=== PATIENT | male | born 1990 | race Caucasian/White ===

== ENCOUNTER 2019-05-07 20:22 | Outpatient (CLI) | payer MEDICAID | END 2019-05-07 20:23 | disposition critical access hospital (66) | LOC: EMS 20:22 | PROVIDERS: ATTEND Surgery | DX: Z03.89 Encounter for observation for other suspected diseases and conditions ruled out (principal); Z59.0 Homelessness | CPT/HCPCS: A0425; A0429 ==

== ENCOUNTER 2019-05-07 20:35 | Emergency (ER) | payer MEDICAID ==
--- NOTE | 2019-05-07 20:49 | ED Physician Documentation ---
PD HPI MHE - Stated complaint Stated Complaint: ALOC - Chief complaint Chief Complaint: General - History obtained from History obtained from: Patient, EMS - History of Present Illness Primary symptom: Psychosis Timing - onset: Unknown Contributing factors: Other (homeless unable to contact family) Similar symptoms before: Diagnosis (schizoaffective and bipolar) Recently seen: Not recently seen - Additional information Additional information: 28-year-old male is unable to give a clear picture of why he is in the emergency department he is homeless and he appears sad. He is complaining of a headache and he is hungry and tired. Review of Systems Constitutional: reports: Fatigue. denies: Fever Eyes: denies: Decreased vision Ears: denies: Ear pain Nose: reports: Congestion Cardiac: denies: Chest pain / pressure, Palpitations Respiratory: reports: Cough. denies: Dyspnea GI: denies: Vomiting PD PAST MEDICAL HISTORY - Past Medical History Past Medical History: Yes Cardiovascular: None Respiratory: Asthma Neuro: None Endocrine/Autoimmune: None GI: None : None HEENT: None Psych: Bipolar disorder, Schizophrenia Musculoskeletal: None, Chronic back pain Derm: None - Past Surgical History Past Surgical History: Yes General: Other Ortho: Other - Allergies Allergies/Adverse Reactions: Allergies Allergy/AdvReac Type Severity Reaction Status Date / Time orange AdvReac Unknown Verified 05/07/19 20:45 - Social History Does the pt smoke?: No Smoking Status: Never smoker Does the pt drink ETOH?: No Does the pt have substance abuse?: No - Immunizations Immunizations are current?: No - POLST Patient has POLST: No PD ED PE NORMAL - Vitals Vital signs reviewed: Yes (hypertensive ) - General General: Well developed/nourished, Other (super sad affect with very quiet voice. ) - HEENT HEENT: Atraumatic, PERRL, EOMI, Other (dry mucuos membranes Right TM is inflamed with indistinct landmarks and the left is less involved with only mild umbo rounding.) - Neck Neck: Supple, no meningeal sign, No bony TTP - Cardiac Cardiac: RRR, No murmur - Respiratory Respiratory: No respiratory distress, Clear bilaterally - Abdomen Abdomen: Soft, Non tender - Back Back: No CVA TTP, No spinal TTP - Derm Derm: Normal color, Warm and dry, No rash - Extremities Extremities: No deformity, Other (trace edema to the feet bilaterally ) - Neuro Neuro: No motor deficit, No sensory deficit, Other (speech is quiet and dysarthric) Eye Opening: Spontaneous Motor: Obeys Commands Verbal: Confused GCS Score: 14 - Psych Psych: Other (mood is sad affect is sad) Results - Vitals Vitals: Vital Signs - 24 hr 05/07/19 05/07/19 05/07/19 20:36 21:30 21:39 Temperature 37.3 C Heart Rate 93 Respiratory 17 16 17 Rate Blood Pressure 141/102 H O2 Saturation 98 05/07/19 05/07/19 05/07/19 21:57 22:12 22:49 Temperature 37.2 C Heart Rate 84 Respiratory 20 17 17 Rate Blood Pressure 150/97 H O2 Saturation 99 05/07/19 05/08/19 05/08/19 23:58 00:15 00:20 Temperature Heart Rate Respiratory 16 17 18 Rate Blood Pressure O2 Saturation 05/08/19 05/08/19 05/08/19 01:20 02:33 02:49 Temperature Heart Rate Respiratory 17 17 17 Rate Blood Pressure O2 Saturation 05/08/19 03:47 Temperature Heart Rate Respiratory 16 Rate Blood Pressure O2 Saturation Oxygen O2 Source Room air - Labs Labs: Laboratory Tests 05/07/19 05/07/19 05/07/19 20:54 20:54 20:54 WBC 7.0 RBC 4.11 L Hgb 12.9 L Hct 40.2 L MCV 97.8 H MCH 31.4 H MCHC 32.1 RDW 12.5 Plt Count 194 MPV 9.2 Neut # (Auto) 3.9 Lymph # (Auto) 2.2 [place] # (Auto) 0.6 Eos # (Auto) 0.1 Baso # (Auto) 0.0 Absolute Nucleated RBC 0.00 Nucleated RBC % 0.0 Sodium 142 Potassium 3.6 Chloride 106 Carbon Dioxide 28 Anion Gap 8.0 BUN 10 Creatinine 0.9 Estimated GFR (MDRD) 99 Glucose 82 Lactic Acid 1.6 Calcium 8.7 Total Bilirubin 0.6 AST 19 ALT 16 Alkaline Phosphatase 52 Total Protein 7.0 Albumin 4.0 Globulin 3.0 Albumin/Globulin Ratio 1.3 Lipase 33 Urine Color Urine Clarity Urine pH Ur Specific [place] Urine Protein Urine Glucose (UA) Urine Ketones Urine Occult Blood Urine Nitrite Urine Bilirubin Urine Urobilinogen Ur Leukocyte Esterase Ur Microscopic Review Urine Culture Comments Urine Opiates Screen Ur Oxycodone Screen Urine Methadone Screen Ur Propoxyphene Screen Ur Barbiturates Screen Ur Tricyclics Screen Ur Phencyclidine Scrn Ur Amphetamine Screen U Methamphetamines Scrn U Benzodiazepines Scrn Urine Cocaine Screen U Cannabinoids Screen Ethyl Alcohol < 5.0 05/07/19 21:45 WBC RBC Hgb Hct MCV MCH MCHC RDW Plt Count MPV Neut # (Auto) Lymph # (Auto) [place] # (Auto) Eos # (Auto) Baso # (Auto) Absolute Nucleated RBC Nucleated RBC % Sodium Potassium Chloride Carbon Dioxide Anion Gap BUN Creatinine Estimated GFR (MDRD) Glucose Lactic Acid Calcium Total Bilirubin AST ALT Alkaline Phosphatase Total Protein Albumin Globulin Albumin/Globulin Ratio Lipase Urine Color YELLOW Urine Clarity CLEAR Urine pH 7.0 Ur Specific [place] 1.020 Urine Protein NEGATIVE Urine Glucose (UA) NEGATIVE Urine Ketones NEGATIVE Urine Occult Blood NEGATIVE Urine Nitrite NEGATIVE Urine Bilirubin NEGATIVE Urine Urobilinogen 1 (NORMAL) Ur Leukocyte Esterase NEGATIVE Ur Microscopic Review NOT INDICATED Urine Culture Comments NOT INDICATED Urine Opiates Screen NEGATIVE Ur Oxycodone Screen NEGATIVE Urine Methadone Screen NEGATIVE Ur Propoxyphene Screen NEGATIVE Ur Barbiturates Screen NEGATIVE Ur Tricyclics Screen NEGATIVE Ur Phencyclidine Scrn NEGATIVE Ur Amphetamine Screen NEGATIVE U Methamphetamines Scrn NEGATIVE U Benzodiazepines Scrn NEGATIVE Urine Cocaine Screen NEGATIVE U Cannabinoids Screen POSITIVE H Ethyl Alcohol PD MEDICAL DECISION MAKING - ED course Complexity details: considered differential, d/w patient ED course: 1-year-old homeless male appearing sad hungry and tired has a history of schizophrenia and bipolar disorder and he presents to the emergency department with no specific complaint his physical exam is otherwise unremarkable he does ask for food. It is busy in the emergency department and we are unable to provide him with any other specific services in the middle of the night and he eventually elopes. Departure - Departure Disposition: ED [place] Condition: Stable Discharge Date/Time: 05/08/19 04:45
[2019-05-07 21:14] LABS: ALBUMIN/GLOBULIN RATIO 1.3 (1.0-2.2); ALKALINE PHOSPHATASE 52 IU/L (42-121); ALT ALANINE AMINOTRANSFERASE 16 IU/L (10-60); AST ASPARTATE AMINOTRANSFERASE 19 IU/L (10-42); BILIRUBIN,TOTAL 0.6 mg/dL (0.2-1.0); BUN - BLOOD UREA NITROGEN 10 mg/dL (6-20); CALCIUM 8.7 mg/dL (8.5-10.3); CARBON DIOXIDE - CO2 28 mmol/L (21-32); CHLORIDE 106 mmol/L (101-111); CREATININE 0.9 mg/dL (0.6-1.2); GFR - MDRD 99 (>89); GLUCOSE 82 mg/dL (70-100); LIPASE 33 U/L (22-51); SODIUM 142 mmol/L (135-145)
[2019-05-07 21:16] LABS: BASOPHILS % (AUTO) 0.6 %; EOSINOPHILS # (AUTO) 0.1 10^3/uL (0.0-0.7); HGB - HEMOGLOBIN 12.9 g/dL (14.0-18.0); LYMPHOCYTES # (AUTO) 2.2 10^3/uL (1.5-3.5); LYMPHOCYTES % (AUTO) 31.8 %; MEAN CORPUSCULAR HEMOGLOBIN 31.4 pg (27.0-31.0); MEAN CORPUSCULAR HGB CONC 32.1 g/dL (32.0-36.0); MEAN CORPUSCULAR VOLUME 97.8 fL (80.0-94.0); MEAN PLATELET VOLUME 9.2 fL (7.4-11.4); MONOCYTES # (AUTO) 0.6 10^3/uL (0.0-1.0); MONOCYTES % (AUTO) 9.2 %; NEUTROPHILS # (AUTO) 3.9 10^3/uL (1.5-6.6); NEUTROPHILS % (AUTO) 56.1 %; PLT - PLATELET COUNT 194 10^3/uL (130-450); RED BLOOD COUNT 4.11 10^6/uL (4.70-6.10); RED CELL DISTRIBUTION WIDTH 12.5 % (12.0-15.0)
[2019-05-07 21:52] LABS: MUDS CUTOFF CONCENTRATIONS CUTOFF CONC BELOW:
[2019-05-07 21:57] LABS: BILIRUBIN,URINE NEGATIVE (NEGATIVE); GLUCOSE, URINE (UA) NEGATIVE (NEGATIVE); KETONES,URINE (UA) NEGATIVE (NEGATIVE); LEUKOCYTE ESTERASE, URINE NEGATIVE (NEGATIVE); NITRITE,URINE NEGATIVE (NEGATIVE); OCCULT BLOOD,URINE NEGATIVE (NEGATIVE); PROTEIN,URINE NEGATIVE (NEGATIVE); UROBILINOGEN,URINE 1 (NORMAL) E.U./dL (NORMAL)
[2019-05-07 21:58] VITALS: BP 150/97
[2019-05-07 22:02] LABS: CLARITY,URINE CLEAR (CLEAR)
[2019-05-07 22:13] LABS: AMPHETAMINE SCREEN,URINE NEGATIVE (NEGATIVE); BENZODIAZEPINES SCREEN, URINE NEGATIVE (NEGATIVE); COCAINE SCREEN URINE NEGATIVE (NEGATIVE); METHADONE SCREEN, URINE NEGATIVE (NEGATIVE); METHAMPHETAMINES SCREEN, URINE NEGATIVE (NEGATIVE); OPIATE SCREEN, URINE NEGATIVE (NEGATIVE); OXYCODONE SCREEN, URINE NEGATIVE (NEGATIVE); PROPOXYPHENE SCREEN, URINE NEGATIVE (NEGATIVE); TRICYCLIC ANTIDEPRESSANT,URINE NEGATIVE (NEGATIVE)
== END 2019-05-08 04:45 | disposition left against medical advice (07) ==
LOC: ED 20:35
DX: F20.9 Schizophrenia, unspecified (principal); Z76.5 Malingerer [conscious simulation]; Z59.0 Homelessness
CPT/HCPCS: 36415; 80053; 80306; 80320; 81001; 81003; 83605; 83690; 85025; 87086; 99283; 99284

== ENCOUNTER 2019-05-12 21:20 | Outpatient (CLI) | payer MEDICAID | END 2019-05-12 23:59 | disposition critical access hospital (66) | LOC: EMS 21:20 | PROVIDERS: ATTEND Surgery | DX: R06.02 Shortness of breath (principal); R05 Cough; M79.605 Pain in left leg; M79.604 Pain in right leg; Z59.0 Homelessness | CPT/HCPCS: A0425; A0429 ==

== ENCOUNTER 2019-05-12 21:38 | Emergency (ER) | payer MEDICAID ==
[2019-05-12 21:44] VITALS: BP 141/89
--- NOTE | 2019-05-12 23:00 | XRAY Report ---
Reason: fall ankle pain Procedure Date: 05/12/2019 Accession Number: [id number] / [id number] Procedure: XR - Ankle 3 View RT CPT Code: Final Report FULL RESULT: EXAM: RIGHT ANKLE RADIOGRAPHY EXAM DATE: 05/12/2019 10:38 PM. CLINICAL HISTORY: Fall ankle pain. COMPARISON: None. TECHNIQUE: 3 views. FINDINGS: Bones: No acute fracture. No suspicious osseous lesion. Joints: No significant joint space narrowing. No dislocation. Other: None. IMPRESSION: No acute osseous abnormality. RADIA
--- NOTE | 2019-05-12 23:05 | ED Physician Documentation ---
PD HPI LOWER EXT INJURY - Stated complaint Stated Complaint: LEG PAIN FOR YEARS - Chief complaint Chief Complaint: Ext Problem - History obtained from History obtained from: Patient - History of Present Illness PD HPI LOW EXT INJURY LOCATION: Right, Ankle Type of injury: Fall, Twist Where injury occurred: Street Timing - onset: Today Timing - duration: Hours Timing - details: Abrupt onset, Still present Improved by: Rest Worsened by: Moving, Palpating Associated symptoms: No: Weakness, Numbness, Tingling, Swelling Similar symptoms before: Diagnosis (ankle fracture) Recently seen: Emergency Dept - Additional information Additional information: 28-year-old homeless male with a history of schizoaffective disorder and bipolar disorder was seen in the emergency department last week and eventually diagnosed with malingering. Today he has called the ambulance after having an alleged fall and complains of pain in his legs. He has had a prior fracture of his left distal tibia and has hardware in place from this fracture. He is complaining of pain to the ankles bilaterally and he is vague about how this happened and about his specific symptoms. He does indicate he has had pain in his ankles for "years" Review of Systems Constitutional: denies: Fever GI: denies: Vomiting Musculoskeletal: reports: Extremity pain, Pain with weight bearing Neurologic: denies: Generalized weakness, Focal weakness, Numbness PD PAST MEDICAL HISTORY - Past Medical History Past Medical History: Yes Cardiovascular: None Respiratory: Asthma Neuro: None Endocrine/Autoimmune: None GI: None : None HEENT: None Psych: Bipolar disorder, Schizophrenia Musculoskeletal: Chronic back pain Derm: None - Past Surgical History Past Surgical History: Yes General: Other Ortho: Other - Allergies Allergies/Adverse Reactions: Allergies Allergy/AdvReac Type Severity Reaction Status Date / Time orange AdvReac Unknown Verified 05/12/19 21:43 - Social History Does the pt smoke?: Yes Smoking Status: Current every day smoker Does the pt drink ETOH?: No Does the pt have substance abuse?: No - Immunizations Immunizations are current?: No - POLST Patient has POLST: No PD ED PE NORMAL - Vitals Vital signs reviewed: Yes (hypertensive mild ) - General General: No acute distress, Well developed/nourished, Other (sad affect is improved from prior visit. ) - HEENT HEENT: Atraumatic, PERRL, EOMI - Respiratory Respiratory: No respiratory distress - Extremities Extremities: Other (There is presents of dependant edema bilaterally and there is not specific swelling laterally or medially to the ankles. He complains of pain in the ankles when specifically asked. On exam this is to the medial and lateral malleolus and not to the proximal 5th or the dorusm of the foot. Distal n/v is intact. ) - Neuro Neuro: Alert and oriented X 3, forestry aide 2-12 intact, No motor deficit, No sensory deficit, Other (speech is quiet) Eye Opening: Spontaneous Motor: Obeys Commands Verbal: Oriented GCS Score: 15 - Psych Psych: Normal mood, Other (affect is blunted) Results - Vitals Vitals: Vital Signs - 24 hr 05/12/19 05/12/19 05/12/19 21:41 22:00 22:32 Temperature 36.7 C Heart Rate 88 Respiratory 17 16 16 Rate Blood Pressure 141/89 H O2 Saturation 98 05/12/19 05/12/19 05/12/19 22:48 23:39 23:47 Temperature Heart Rate Respiratory 16 16 16 Rate Blood Pressure O2 Saturation 05/12/19 05/12/19 23:49 23:54 Temperature Heart Rate 80 Respiratory 17 17 Rate Blood Pressure O2 Saturation 96 Oxygen O2 Source Room air - Rads (name of study) ankle R Radiology: Prelim report reviewed (Impression: No acute osseous abnormality.), EMP read indepedently, See rad report Procedures - Splint (location) ankle bilaterally Splint applied by: Tech Type of splint: Ankle airsplint Other: Patient tolerated well, No complications, Neurovascular intact, Good alignment. No: Crutches provided PD MEDICAL DECISION MAKING - ED course Complexity details: reviewed old records, reviewed results, re-evaluated patient, considered differential, d/w patient ED course: 28-year-old homeless male with a complaint of ankle pain has a fairly benign exam he does have hardware in the left ankle, there is no sign of inflammation to the prior incision, there is no specific swelling. There is some dependent edema to the ankle and feet bilaterally and this is assumed to be secondary to excessive walking. The patient is placed into ankle aircasts bilaterally and acknowledges improved comfort with ambulation after placement of the splints. I suspect the patient again is malingering and has come to the emergency department to get out of the cold. He is not specifically confronted with this tonight. Departure - Departure Disposition: 01 Home, Self Care Clinical Impression: Ankle sprain Qualifiers: Encounter type: initial encounter Involved ligament of ankle: calcaneofibular ligament Laterality: unspecified laterality Qualified Code(s): S93.419A - Sprain of calcaneofibular ligament of unspecified ankle, initial encounter Condition: Stable Instructions: ED Sprain Ankle W X Ray Follow-Up: [facility] [Provider Group] Discharge Date/Time: 05/12/19 23:54
--- NOTE | 2019-05-12 23:59 | XRAY Report ---
Reason: lateral pain injury Procedure Date: 05/12/2019 Accession Number: [id number] / [id number] Procedure: XR - Ankle 3 View LT CPT Code: Final Report FULL RESULT: EXAM: LEFT ANKLE RADIOGRAPHY EXAM DATE: 05/12/2019 11:07 PM. CLINICAL HISTORY: Lateral pain injury. COMPARISON: ANKLE 3 VIEW RT 05/12/2019 10:38 PM. TECHNIQUE: 3 views. FINDINGS: Bones: Patient is status post open reduction internal fixation of distal tibia. There are plate and screws. The previous noted fracture lines have healed. There are no acute changes of the bones of the distal tibia and fibula nor the ankle. Joints: Normal. No effusion. No subluxations. The ankle mortise is normally aligned. Soft Tissues: There is some soft tissue swelling around the ankle. IMPRESSION: 1.Status post open reduction internal fixation previously noted of the distal tibia. No acute findings. 2. Surrounding soft tissue swelling. RADIA
== END 2019-05-12 23:54 | disposition home or self-care (01) ==
LOC: EDUNIT# → ED 21:38
DX: S93.419A Sprain of calcaneofibular ligament of unspecified ankle, initial encounter (principal); W18.30XA Fall on same level, unspecified, initial encounter; X50.1XXA Overexertion from prolonged static or awkward postures, initial encounter; Y93.01 Activity, walking, marching and hiking; Y92.410 Unspecified street and highway as the place of occurrence of the external cause; Z87.81 Personal history of (healed) traumatic fracture; F25.0 Schizoaffective disorder, bipolar type; F17.200 Nicotine dependence, unspecified, uncomplicated; Z59.0 Homelessness
CPT/HCPCS: 99282; 99283

== ENCOUNTER 2019-06-04 02:33 | Outpatient (CLI) | payer MEDICAID | END 2019-06-04 02:34 | disposition critical access hospital (66) | LOC: EMS 02:33 | PROVIDERS: ATTEND Surgery | DX: Z01.89 Encounter for other specified special examinations (principal) | CPT/HCPCS: A0425; A0429; A0999 ==

== ENCOUNTER 2019-06-04 02:48 | Emergency (ER) | payer MEDICAID ==
[2019-06-04 03:19] LABS: BASOPHILS % (AUTO) 0.3 %; EOSINOPHILS # (AUTO) 0.2 10^3/uL (0.0-0.7); EOSINOPHILS % (AUTO) 3.4 %; HGB - HEMOGLOBIN 13.4 g/dL (14.0-18.0); LYMPHOCYTES # (AUTO) 2.3 10^3/uL (1.5-3.5); LYMPHOCYTES % (AUTO) 38.1 %; MEAN CORPUSCULAR HEMOGLOBIN 31.8 pg (27.0-31.0); MEAN CORPUSCULAR HGB CONC 31.8 g/dL (32.0-36.0); MEAN CORPUSCULAR VOLUME 99.8 fL (80.0-94.0); MONOCYTES # (AUTO) 0.6 10^3/uL (0.0-1.0); MONOCYTES % (AUTO) 10.5 %; NEUTROPHILS # (AUTO) 2.9 10^3/uL (1.5-6.6); NEUTROPHILS % (AUTO) 47.4 %; PLT - PLATELET COUNT 233 10^3/uL (130-450); RED BLOOD COUNT 4.22 10^6/uL (4.70-6.10); RED CELL DISTRIBUTION WIDTH 13.1 % (12.0-15.0); WHITE BLOOD COUNT 6.1 x10^3/uL (4.8-10.8)
[2019-06-04 03:21] LABS: MUDS CUTOFF CONCENTRATIONS CUTOFF CONC BELOW:
[2019-06-04 03:27] LABS: BUN - BLOOD UREA NITROGEN 18 mg/dL (6-20); CALCIUM 9.5 mg/dL (8.5-10.3); CARBON DIOXIDE - CO2 27 mmol/L (21-32); CHLORIDE 102 mmol/L (101-111); CREATININE 0.8 mg/dL (0.6-1.2); GFR - MDRD 114 (>89); GLUCOSE 101 mg/dL (70-100); SODIUM 138 mmol/L (135-145)
[2019-06-04 03:36] LABS: AMPHETAMINE SCREEN,URINE POSITIVE (NEGATIVE); BENZODIAZEPINES SCREEN, URINE NEGATIVE (NEGATIVE); COCAINE SCREEN URINE NEGATIVE (NEGATIVE); METHADONE SCREEN, URINE NEGATIVE (NEGATIVE); METHAMPHETAMINES SCREEN, URINE POSITIVE (NEGATIVE); OPIATE SCREEN, URINE NEGATIVE (NEGATIVE); OXYCODONE SCREEN, URINE NEGATIVE (NEGATIVE); PROPOXYPHENE SCREEN, URINE NEGATIVE (NEGATIVE); TRICYCLIC ANTIDEPRESSANT,URINE NEGATIVE (NEGATIVE)
--- NOTE | 2019-06-04 05:02 | ED Physician Documentation ---
PD HPI MHE - Stated complaint Stated Complaint: MHE - Chief complaint Chief Complaint: MHE - History obtained from History obtained from: EMS, Other (patient provides little to HPI/ROS; does not answer most of my questions. Repeatedly falls asleep.) - History of Present Illness Timing - onset: Unknown Recently seen: Emergency Dept - Additional information Additional information: [place] who were contacted by police. Police had been contacted because patient was in a laundromat exhibiting odd behavior. Patient is homeless and EMS arrives with patient as well as three large bags (large satchel and two garbage bags) of patient's possessions. He is sleepy, wakens briefly with repeated verbal stimulus, answers few questions. He tells me the reason he is here is "cough", but he says "I don't remember" when I ask how long he has had this. When I ask him if he takes any prescription medications, he says "I wish". These are the only answers he provides me. Review of Systems Unable to obtain: Other (repeatedly falls asleep, but answers none of my HPI/ROS questions except as noted above) Respiratory: reports: Cough PD PAST MEDICAL HISTORY - Past Medical History Past Medical History: Yes Cardiovascular: None Respiratory: Asthma Neuro: None Endocrine/Autoimmune: None GI: None : None HEENT: None Psych: Bipolar disorder, Schizophrenia Musculoskeletal: Chronic back pain Derm: None - Past Surgical History Past Surgical History: Yes General: Other Ortho: Other - Present Medications Home Medications: Ambulatory Orders Medication Instructions Recorded Confirmed No Known Home Medications 06/04/19 06/04/19 - Allergies Allergies/Adverse Reactions: Allergies Allergy/AdvReac Type Severity Reaction Status Date / Time orange AdvReac Unknown Verified 06/04/19 03:00 - Social History Does the pt smoke?: Yes Smoking Status: Current every day smoker Does the pt drink ETOH?: No Does the pt have substance abuse?: No - Immunizations Immunizations are current?: No - POLST Patient has POLST: No PD ED PE NORMAL - Vitals Vital signs reviewed: Yes - General General: No acute distress, Well developed/nourished, Other (sleeping, wakens briefly but falls back asleep quickly. Follows some simple commands when repeatedly instructed ) - HEENT HEENT: PERRL, EOMI, Moist mucous membranes, Pharynx benign - Neck Neck: Supple, no meningeal sign - Cardiac Cardiac: RRR, No murmur - Respiratory Respiratory: No respiratory distress, Clear bilaterally - Abdomen Abdomen: Soft, Non tender, Other (old RUQ scar (mumbles unintelligible answer when I ask what this is from)) - Derm Derm: Normal color, Warm and dry - Extremities Extremities: Other (old, healed left ankle anterior midline scar) - Neuro Eye Opening: To Voice Motor: Obeys Commands (few) Results - Vitals Vitals: Vital Signs - 24 hr 06/04/19 06/04/19 06/04/19 02:48 06:44 13:13 Temperature 36.6 C 36.9 C Heart Rate 79 82 80 Respiratory 16 18 20 Rate Blood Pressure 123/88 H 128/92 H 102/48 L O2 Saturation 100 98 99 Oxygen O2 Source Room air - Labs Labs: Laboratory Tests 06/04/19 06/04/19 06/04/19 03:10 03:10 03:15 WBC 6.1 RBC 4.22 L Hgb 13.4 L Hct 42.1 MCV 99.8 H MCH 31.8 H MCHC 31.8 L RDW 13.1 Plt Count 233 MPV 9.0 Neut # (Auto) 2.9 Lymph # (Auto) 2.3 [place] # (Auto) 0.6 Eos # (Auto) 0.2 Baso # (Auto) 0.0 Absolute Nucleated RBC 0.00 Nucleated RBC % 0.0 Sodium 138 Potassium 4.2 Chloride 102 Carbon Dioxide 27 Anion Gap 9.0 BUN 18 Creatinine 0.8 Estimated GFR (MDRD) 114 Glucose 101 H Calcium 9.5 Urine Opiates Screen NEGATIVE Ur Oxycodone Screen NEGATIVE Urine Methadone Screen NEGATIVE Ur Propoxyphene Screen NEGATIVE Ur Barbiturates Screen NEGATIVE Ur Tricyclics Screen NEGATIVE Ur Phencyclidine Scrn NEGATIVE Ur Amphetamine Screen POSITIVE H U Methamphetamines Scrn POSITIVE H U Benzodiazepines Scrn NEGATIVE Urine Cocaine Screen NEGATIVE U Cannabinoids Screen POSITIVE H Ethyl Alcohol < 5.0 PD MEDICAL DECISION MAKING - ED course Complexity details: reviewed old records, reviewed results, re-evaluated patient, considered differential ED course: Third [facility] ED visit in past month. He was here one month ago with similar presentation, eventually eloped. Subsequently returned c/o leg pain. SUNNY form reflects 14 [place] ED visits over past 12 months to 7 different EDs, with frequent c/o leg pain. SW consulted and they met with patient and options for outpatient resources were discussed, although patient subsequently stopped talking to the social psychologist and insisted on keeping the blanket over his head. Case turned over to Dr. Noe at end of my shift. Before I left ED, patient was suddenly awake, alert, eating food and RN informs me that patient is communicating and wants to speak with SW again, and this is being arranged. Departure - Departure Disposition: 01 Home, Self Care Clinical Impression: Drug use Condition: Good Instructions: Abuse Meth Abuse and Addiction Comments: Please follow-up on the resources that social provided with you. Please abstain from drug and alcohol use. If you are developing worsening symptoms return to the ED. It is important that you establish with a primary care provide.r Discharge Date/Time: 06/04/19 14:20
--- NOTE | 2019-06-04 07:57 | ED Physician Documentation ---
ED Addendum - Addendum Addendum: Pt signed out from Dr. Torres. 28 year old undomiciled male who was brought in by police for bizarre behavior, + for amphetamines. Medically cleared. No SI or HI. Plan is for patient to be seen by SW for resources and then appears reasonable for discharge. SW saw and provided resources. I re-evaluated patient, who has eaten their entire meal and is well-appearing. They deny SI or HI. Return precautions reviewed and recommended avoiding drugs. Pt was discharged.
[2019-06-04 13:13] VITALS: BP 102/48
== END 2019-06-04 14:20 | disposition home or self-care (01) ==
LOC: EDUNIT# → ED 02:48
DX: F15.90 Other stimulant use, unspecified, uncomplicated (principal); F17.200 Nicotine dependence, unspecified, uncomplicated; Z59.0 Homelessness
CPT/HCPCS: 36415; 80048; 80306; 80320; 85025; 99283

== ENCOUNTER 2019-08-04 18:10 | Emergency (ER) | payer MEDICAID ==
[2019-08-04 18:44] LABS: BASOPHILS % (AUTO) 0.3 %; EOSINOPHILS # (AUTO) 0.1 10^3/uL (0.0-0.7); EOSINOPHILS % (AUTO) 1.9 %; HGB - HEMOGLOBIN 10.9 g/dL (14.0-18.0); LYMPHOCYTES # (AUTO) 2.8 10^3/uL (1.5-3.5); LYMPHOCYTES % (AUTO) 37.4 %; MEAN CORPUSCULAR HEMOGLOBIN 31.2 pg (27.0-31.0); MEAN CORPUSCULAR VOLUME 97.7 fL (80.0-94.0); MEAN PLATELET VOLUME 8.5 fL (7.4-11.4); MONOCYTES # (AUTO) 0.5 10^3/uL (0.0-1.0); MONOCYTES % (AUTO) 6.9 %; NEUTROPHILS # (AUTO) 3.9 10^3/uL (1.5-6.6); NEUTROPHILS % (AUTO) 51.9 %; PLT - PLATELET COUNT 244 10^3/uL (130-450); RED BLOOD COUNT 3.49 10^6/uL (4.70-6.10); RED CELL DISTRIBUTION WIDTH 12.7 % (12.0-15.0); WHITE BLOOD COUNT 7.4 x10^3/uL (4.8-10.8)
[2019-08-04 18:53] LABS: ALBUMIN 3.8 g/dL (3.2-5.5); ALBUMIN/GLOBULIN RATIO 1.2 (1.0-2.2); BILIRUBIN,TOTAL 0.5 mg/dL (0.2-1.0); CREATININE 0.8 mg/dL (0.6-1.2)
[2019-08-04 19:04] LABS: INR 1.2 (0.8-1.2); PT - PROTHROMBIN TIME 13.1 secs (9.9-12.6)
[2019-08-04 19:11] LABS: PARTIAL THROMBOPLASTIN TIME 31.4 secs (24.9-33.3)
[2019-08-04] MEDS ORDERED: SODIUM CHLORIDE 0.9% 1,000 ML IV ONE (19:51)
[2019-08-04] MEDS ORDERED: PANTOPRAZOLE 40 MG VIAL IV STA (19:51)
--- NOTE | 2019-08-04 19:54 | ED Physician Documentation ---
PD HPI ABD PAIN - Stated complaint Stated Complaint: ABD PX/BLACK STOOL/FEVER - Chief complaint Chief Complaint: Abd Pain - History obtained from History obtained from: Patient - History of Present Illness Timing - details: Other (SEVERAL DAYS AGO PER PATIENT) Location: Epigastric Radiation: No: Chest Associated symptoms: Nausea, Vomiting - Additional information Additional information: 29 YEAR OLD MALE WITH HX OF CHRONIC NSAIDS USE FOR CHRONIC LEFT ANKLE PAIN, SWELLING FROM PREVIOUS FRACTURE AND SURGICAL REPAIR A YEAR AGO, PRESENTS TO THE EMERGENCY DEPARTMENT BECAUSE OF LEFT BLACK, TARRY STOOL FOR THE LAST SEVERAL DAYS. HE REPORTED OF VOMITING BLOOD SEVERAL DAYS AGO BUT DID NOT HAVE A RIDE TO COME TO THE EMERGENCY DEPARTMENT. HE REPORTED OF EPIGASTRIC ABDOMINAL PAIN. HE DENIES SYNCOPE OR NEAR SYNCOPE. Review of Systems Constitutional: denies: Fever, Chills Nose: denies: Rhinorrhea / runny nose Cardiac: denies: Chest pain / pressure Respiratory: denies: Dyspnea, Cough GI: reports: Abdominal Pain, Nausea, Vomiting, Hematemesis, Bloody / black stool Skin: denies: Rash Musculoskeletal: denies: Neck pain, Back pain Neurologic: denies: Generalized weakness, Syncope, Confused PD PAST MEDICAL HISTORY - Past Medical History Cardiovascular: None Respiratory: Asthma Neuro: None Endocrine/Autoimmune: None GI: None : None HEENT: None Psych: Bipolar disorder, Schizophrenia Musculoskeletal: Chronic back pain Derm: None - Past Surgical History Past Surgical History: Yes General: Other Ortho: Other - Present Medications Home Medications: Ambulatory Orders Medication Instructions Recorded Confirmed Pantoprazole Sodium [Protonix] 40 mg PO BID #60 tablet. 08/04/19 Sucralfate [Carafate] 1 gm PO ACHS #120 tablet 08/04/19 - Allergies Allergies/Adverse Reactions: Allergies Allergy/AdvReac Type Severity Reaction Status Date / Time orange AdvReac Unknown Verified 08/04/19 18:15 - Social History Does the pt smoke?: Yes Smoking Status: Current every day smoker Does the pt drink ETOH?: No Does the pt have substance abuse?: No - Immunizations Immunizations are current?: No - POLST Patient has POLST: No PD ED PE NORMAL - Vitals Vital signs reviewed: Yes - General General: Alert and oriented X 3 - HEENT HEENT: Atraumatic - Neck Neck: Supple, no meningeal sign - Cardiac Cardiac: RRR - Respiratory Respiratory: No respiratory distress - Abdomen Abdomen: Normal bowel sounds, Soft - Rectal Rectal: Other (MELANOTIC STOOL NOTED.) - Back Back: No CVA TTP - Derm Derm: Normal color, Warm and dry - Extremities Extremities: No deformity - Neuro Neuro: Alert and oriented X 3, No motor deficit, No sensory deficit Eye Opening: Spontaneous Motor: Obeys Commands Verbal: Oriented GCS Score: 15 Results - Vitals Vitals: Oxygen O2 Source Room air - Labs Labs: Microbiology 08/04/19 20:00 Occult Blood - Final Stool Laboratory Tests 08/04/19 08/04/19 08/04/19 18:33 18:33 18:33 WBC 7.4 RBC 3.49 L Hgb 10.9 L Hct 34.1 L MCV 97.7 H MCH 31.2 H MCHC 32.0 RDW 12.7 Plt Count 244 MPV 8.5 Neut # (Auto) 3.9 Lymph # (Auto) 2.8 [place] # (Auto) 0.5 Eos # (Auto) 0.1 Baso # (Auto) 0.0 Absolute Nucleated RBC 0.03 Nucleated RBC % 0.4 PT 13.1 H INR 1.2 APTT 31.4 Sodium 133 L Potassium 3.8 Chloride 98 L Carbon Dioxide 26 Anion Gap 9.0 BUN 38 H Creatinine 0.8 Estimated GFR (MDRD) 113 Glucose 110 H Calcium 9.0 Total Bilirubin 0.5 AST 22 ALT 27 Alkaline Phosphatase 37 L Total Protein 7.0 Albumin 3.8 Globulin 3.2 Albumin/Globulin Ratio 1.2 Lipase 35 Urine Color Urine Clarity Urine pH Ur Specific [place] Urine Protein Urine Glucose (UA) Urine Ketones Urine Occult Blood Urine Nitrite Urine Bilirubin Urine Urobilinogen Ur Leukocyte Esterase Ur Microscopic Review Urine Culture Comments Blood Type Blood Type Recheck Antibody Screen 08/04/19 08/04/19 08/04/19 19:28 20:15 21:35 WBC RBC Hgb Hct MCV MCH MCHC RDW Plt Count MPV Neut # (Auto) Lymph # (Auto) [place] # (Auto) Eos # (Auto) Baso # (Auto) Absolute Nucleated RBC Nucleated RBC % PT INR APTT Sodium Potassium Chloride Carbon Dioxide Anion Gap BUN Creatinine Estimated GFR (MDRD) Glucose Calcium Total Bilirubin AST ALT Alkaline Phosphatase Total Protein Albumin Globulin Albumin/Globulin Ratio Lipase Urine Color YELLOW Urine Clarity CLEAR Urine pH 5.5 Ur Specific [place] 1.025 Urine Protein NEGATIVE Urine Glucose (UA) NEGATIVE Urine Ketones NEGATIVE Urine Occult Blood NEGATIVE Urine Nitrite NEGATIVE Urine Bilirubin NEGATIVE Urine Urobilinogen 0.2 (NORMAL) Ur Leukocyte Esterase NEGATIVE Ur Microscopic Review NOT INDICATED Urine Culture Comments NOT INDICATED Blood Type O POSITIVE Blood Type Recheck O POSITIVE Antibody Screen NEGATIVE 08/04/19 21:35 WBC RBC Hgb 10.2 L Hct 30.8 L MCV MCH MCHC RDW Plt Count MPV Neut # (Auto) Lymph # (Auto) [place] # (Auto) Eos # (Auto) Baso # (Auto) Absolute Nucleated RBC Nucleated RBC % PT INR APTT Sodium Potassium Chloride Carbon Dioxide Anion Gap BUN Creatinine Estimated GFR (MDRD) Glucose Calcium Total Bilirubin AST ALT Alkaline Phosphatase Total Protein Albumin Globulin Albumin/Globulin Ratio Lipase Urine Color Urine Clarity Urine pH Ur Specific [place] Urine Protein Urine Glucose (UA) Urine Ketones Urine Occult Blood Urine Nitrite Urine Bilirubin Urine Urobilinogen Ur Leukocyte Esterase Ur Microscopic Review Urine Culture Comments Blood Type Blood Type Recheck Antibody Screen PD MEDICAL DECISION MAKING - ED course Complexity details: re-evaluated patient, d/w patient ED course: 29 YEAR OLD MALE PRESENTED TO THE EMERGENCY DEPARTMENT WITH BLACK, TARRY STOOL. HX OF NSAID's USE. PATIENT REMAINED HEMODYNAMICALLY STABLE. RECTAL EXAM SHOWED DARK COLORED STOOL THAT WAS GUAIAC POSITIVE. H/H WERE DECREASED FROM MONTHS AGO. IV WAS STARTED AND PATIENT WAS GIVEN IV PROTONIX. I DISCUSSED THE CASE WITH DR. NELSON, GENERAL SURGEON. SHE DID NOT RECOMMENDED ADMISSION. SHE BELIEVED THE CAUSE IS LIKELY PEPTIC ULCER DISEASE WITH CHRONIC NSAIDS USE. SHE RECOMMENDED THE PATIENT TO STOP NSAIDS AND TAKE PROTONIX 40 MG TWICE DAY FOR 2 WEEKS THEN DOWN TO PROTONIX 40 MG DAILY. SHE ALSO RECOMMENDED CARAFATE 4 TIMES DAILY. THE BLEEDING LIKELY HAS OR WILL RESOLVE SPONTANEOUSLY. REPEAT H/H WERE STABLE. PATIENT HAD NO EPISODES OF HEMATAEMESIS HERE IN THE ED. HE REMAINED STABLE. DIAGNOSIS AND TREATMENT PLAN WERE DISCUSSED. OUTPATIENT FOLLOW UP WITH DR. NELSON AT THE OFFICE SOON POSSIBLE IN 3-5 DAYS WERE RECOMMENDED. STRICT RETURN INSTRUCTIONS WERE GIVEN. PATIENT WAS DISCHARGED IN STABLE CONDITION. Departure - Departure Disposition: 01 Home, Self Care Clinical Impression: GI bleeding Condition: Stable Instructions: ED Bleed UGI Stable Follow-Up: Nahum Nelson MD [Provider Admit Priv/Credential] - Within 3 Days Prescriptions: Pantoprazole Sodium [Protonix] 40 mg PO BID #60 tablet.dr Sucralfate [Carafate] 1 gm PO ACHS #120 tablet Comments: PLEASE RETURN TO THE EMERGENCY DEPARTMENT IF YOU EXPERIENCE DIZZINESS, EPISODES OF PASSING OUT, VOMITING BLOOD CLOTS, BRIGHT RED BLOOD, CHEST PAIN, SHORTNESS OF BREATH OR ANY NEW OR CONCERNING SYMPTOMS. PLEASE STOP USING IBUPROFEN OR OTHER NSAIDS. Discharge Date/Time: 08/04/19 22:08
[2019-08-04 20:30] LABS: BILIRUBIN,URINE NEGATIVE (NEGATIVE); GLUCOSE, URINE (UA) NEGATIVE (NEGATIVE); KETONES,URINE (UA) NEGATIVE (NEGATIVE); LEUKOCYTE ESTERASE, URINE NEGATIVE (NEGATIVE); NITRITE,URINE NEGATIVE (NEGATIVE); OCCULT BLOOD,URINE NEGATIVE (NEGATIVE); PH,URINE 5.5 PH (5.0-7.5); PROTEIN,URINE NEGATIVE (NEGATIVE); UROBILINOGEN,URINE 0.2 (NORMAL) E.U./dL (NORMAL)
[2019-08-04 20:33] LABS: CLARITY,URINE CLEAR (CLEAR)
[2019-08-04 21:38] LABS: HGB - HEMOGLOBIN 10.2 g/dL (14.0-18.0)
[2019-08-04 21:51] VITALS: BP 116/66
[2019-08-04] MEDS ORDERED: traMADol 50 MG TABLET PO STA (22:48)
== END 2019-08-04 22:08 | disposition home or self-care (01) ==
LOC: ED 18:10
DX: K92.1 Melena (principal); Z79.1 Long term (current) use of non-steroidal anti-inflammatories (NSAID); F17.200 Nicotine dependence, unspecified, uncomplicated
CPT/HCPCS: 36415; 80053; 81003; 82272; 83690; 85014; 85018; 85025; 85610; 85730; 86850; 86900; 86901; 96360; 99283; A9270; 81001; 87086

== ENCOUNTER 2019-08-13 18:57 | Emergency (ER) | payer MEDICAID ==
--- NOTE | 2019-08-13 19:08 | ED Physician Documentation ---
History of Present Illness - Stated complaint Stated Complaint: FOLLOW UP - Chief complaint Chief Complaint: Abd Pain - History obtained from History obtained from: Patient - History of Present Illness Timing: How many weeks ago ("several weeks" (per patient)) Pain level now: 3 (BLE) - Additonal information Additional information: T+R 9 days ago from this ED for LGIB, was provided Dr. Nelson's information for f/u. Patient says he was unable to obtain f/u because he could not get a ride until tonight. Now that he has procured a ride, he says he is here in the ED for the f/u that was recommended he obtain when he was last discharged. I point out that his [employer] form indicates he was in an ED in [place] 2 days ago for similar c/o. He says the ride he had was going to [place], so he went to that ED at that time. He asks for information for f/u as well as "something for my leg pain"; he says he has chronic BLE pain. He says a pharmacist told him that there is a topical cream that would help with leg pain and swelling, but he does not know what it is. Review of Systems Constitutional: denies: Fever, Chills, Sweats Respiratory: denies: Dyspnea GI: denies: Abdominal Pain, Nausea, Vomiting, Hematemesis, Bloody / black stool Musculoskeletal: reports: Extremity pain PD PAST MEDICAL HISTORY - Past Medical History Cardiovascular: None Respiratory: Asthma Neuro: None Endocrine/Autoimmune: None GI: None : None HEENT: None Psych: Bipolar disorder, Schizophrenia Musculoskeletal: Chronic back pain Derm: None - Past Surgical History Past Surgical History: Yes General: Other Ortho: Other - Present Medications Home Medications: Ambulatory Orders Medication Instructions Recorded Confirmed Pantoprazole Sodium [Protonix] 40 mg PO BID #60 tablet. 08/04/19 Sucralfate [Carafate] 1 gm PO ACHS #120 tablet 08/04/19 Benzonatate [Tessalon Perle] 100 - 200 mg PO TID PRN #30 capsule 08/13/19 - Allergies Allergies/Adverse Reactions: Allergies Allergy/AdvReac Type Severity Reaction Status Date / Time orange AdvReac Unknown Verified 08/13/19 19:00 - Social History Does the pt smoke?: Yes Smoking Status: Current every day smoker Does the pt drink ETOH?: No Does the pt have substance abuse?: No - Immunizations Immunizations are current?: No - POLST Patient has POLST: No PD ED PE NORMAL - Vitals Vital signs reviewed: Yes - General General: Alert and oriented X 3, No acute distress, Well developed/nourished - HEENT HEENT: Moist mucous membranes - Cardiac Cardiac: RRR, No murmur - Respiratory Respiratory: No respiratory distress, Clear bilaterally - Abdomen Abdomen: Soft, Non tender - Derm Derm: Normal color, Warm and dry - Extremities Extremities: Normal ROM s pain, No edema Results - Vitals Vitals: Vital Signs - 24 hr 08/13/19 08/13/19 19:00 19:37 Temperature 37.6 C H 37.1 C Heart Rate 110 H 104 H Respiratory 18 16 Rate Blood Pressure 124/84 H 124/74 O2 Saturation 98 99 Oxygen O2 Source Room air PD MEDICAL DECISION MAKING - ED course Complexity details: reviewed old records, considered differential, d/w patient Departure - Departure Disposition: 01 Home, Self Care Clinical Impression: Cough, Leg pain, bilateral Condition: Good Instructions: ED Upper Resp Infec No Abx Tx, ED Muscle Pain Leg Cramps Follow-Up: Nahum Neslon MD [Provider Admit Priv/Credential] - Prescriptions: Benzonatate [Tessalon Perle] 100 - 200 mg PO TID PRN #30 capsule PRN Reason: Cough Discharge Date/Time: 08/13/19 19:37
[2019-08-13] MEDS ORDERED: BENZONATATE 100 MG CAPSULE PO STA (19:19)
[2019-08-13] MEDS ORDERED: ACETAMINOPHEN 325 MG TABLET PO STA (19:19)
[2019-08-13 19:45] VITALS: BP 124/74
== END 2019-08-13 19:37 | disposition home or self-care (01) ==
LOC: ED 18:57
DX: M79.605 Pain in left leg (principal); M79.604 Pain in right leg; R05 Cough; F17.200 Nicotine dependence, unspecified, uncomplicated
CPT/HCPCS: 99282; 99284; A9270

== ENCOUNTER 2019-09-10 08:00 | Outpatient (CLI) | payer MEDICAID ==
[2019-09-10 19:13] LABS: TRICHOMONAS VAGINALIS DNA NEGATIVE (NEGATIVE)
[2019-09-11 14:55] LABS: HEPATITIS C ANTIBODY NON-REACTIVE (NON-REACTIVE)
[2019-09-13 12:25] LABS: HIV AG/AB 4TH GEN NON-REACTIVE (NON-REACTIVE)
[2019-09-14 10:40] LABS: HSV 1 IGG TYPE SPECIFIC AB 29.4 index; HSV 2 IGG TYPE SPECIFIC AB 8.31 index
== END 2019-09-10 23:59 | disposition home or self-care (01) ==
LOC: LAB.WCP 08:00
PROVIDERS: ATTEND Family Medicine
DX: Z11.3 Encounter for screening for infections with a predominantly sexual mode of transmission (principal)
CPT/HCPCS: 36415; 81599; 86592; 86695; 86696; 86803; 87389; 87491; 87591; 87661

== ENCOUNTER 2019-10-22 09:32 | Outpatient (CLI) | payer MEDICAID | END 2019-10-22 09:33 | disposition critical access hospital (66) | LOC: EMS 09:32 | PROVIDERS: ATTEND Surgery | DX: R05 Cough (principal); Z59.0 Homelessness | CPT/HCPCS: A0425; A0429 ==

== ENCOUNTER 2019-10-22 09:49 | Emergency (ER) | payer MEDICAID ==
[2019-10-22 10:00] VITALS: BP 129/74
--- NOTE | 2019-10-22 11:01 | ED Physician Documentation ---
History of Present Illness - Stated complaint Stated Complaint: SICK - Chief complaint Chief Complaint: Ext Problem - History obtained from History obtained from: Patient - History of Present Illness Timing: Today - Additonal information Additional information: 29-year-old homeless male was picked up in [place] by ambulance after police were called for some when sharing a beer. The patient asked to be transported to the hospital stating that he felt sick. The patient does have a history of malingering and has multiple ER visits for ankle pain and foot pain. He has had prior surgery to his left ankle. He uses these excuses for ED visits frequently. He has a history of schizoaffective disorder. Review of Systems Constitutional: reports: Fatigue. denies: Fever Eyes: denies: Decreased vision Nose: reports: Congestion Throat: denies: Sore throat Cardiac: denies: Chest pain / pressure Respiratory: denies: Cough GI: denies: Vomiting Musculoskeletal: reports: Extremity pain (feet hurt) Neurologic: denies: Focal weakness, Numbness, Difficulty speaking PD PAST MEDICAL HISTORY - Past Medical History Cardiovascular: None Respiratory: Asthma Neuro: None Endocrine/Autoimmune: None GI: None : None HEENT: None Psych: Bipolar disorder, Schizophrenia Musculoskeletal: Chronic back pain Derm: None - Past Surgical History Past Surgical History: Yes General: Other Ortho: Other - Present Medications Home Medications: Ambulatory Orders Medication Instructions Recorded Confirmed Pantoprazole Sodium [Protonix] 40 mg PO BID #60 tablet. 08/04/19 Sucralfate [Carafate] 1 gm PO ACHS #120 tablet 08/04/19 Benzonatate [Tessalon Perle] 100 - 200 mg PO TID PRN #30 capsule 08/13/19 Terbinafine HCl [Terbinafine] 1 gm TP BID #15 gm 10/22/19 - Allergies Allergies/Adverse Reactions: Allergies Allergy/AdvReac Type Severity Reaction Status Date / Time orange AdvReac Unknown Verified 10/22/19 09:59 - Social History Does the pt smoke?: Yes Smoking Status: Current every day smoker Does the pt drink ETOH?: No Does the pt have substance abuse?: No - Immunizations Immunizations are current?: No - POLST Patient has POLST: No PD ED PE NORMAL - Vitals Vital signs reviewed: Yes (normal ) - General General: Alert and oriented X 3, Well developed/nourished, Other (overweight 29 y/o male with deep frontalis grooves) - HEENT HEENT: Atraumatic, PERRL, EOMI - Cardiac Cardiac: RRR, No murmur - Respiratory Respiratory: No respiratory distress, Clear bilaterally - Abdomen Abdomen: Soft, Non tender - Derm Derm: Normal color, Warm and dry, No rash - Extremities Extremities: No deformity, No edema, Other (There is no inflammation to the incision from the prior ankle fracture repair on the left side there is no inflammation to either foot on the bottom of each foot however there is evidence of skin desquamation consistent with athletes feet.) - Neuro Neuro: Alert and oriented X 3, assistant editor 2-12 intact, No motor deficit, No sensory deficit, Normal speech Eye Opening: Spontaneous Motor: Obeys Commands Verbal: Oriented GCS Score: 15 - Psych Psych: Normal mood, Other (Affect is sad permanently) Results - Vitals Vitals: Vital Signs - 24 hr 10/22/19 09:56 Temperature 37.4 C Heart Rate 86 Respiratory 18 Rate Blood Pressure 129/74 O2 Saturation 99 Oxygen O2 Source Room air PD MEDICAL DECISION MAKING - ED course Complexity details: reviewed old records, considered differential, d/w patient ED course: 29-year-old male with a history of malingering is coming to the emergency department today complaining of pain in his feet and he does have some athletes feet feet. He is wearing some heavy boots which are supportive for his ankles he does not appear to have any issue with the incision from his prior surgery or any excessive swelling or specific tenderness. He is malingering here in the emergency department today. Departure - Departure Disposition: 01 Home, Self Care Clinical Impression: Athletes foot Qualifiers: Laterality: bilateral Qualified Code(s): B35.3 - Tinea pedis Condition: Stable Instructions: Terbinafine skin cream gel or topical solution Follow-Up: [facility] [Provider Group] Prescriptions: Terbinafine HCl [Terbinafine] 1 gm TP BID #15 gm Discharge Date/Time: 10/22/19 11:47
== END 2019-10-22 11:47 | disposition home or self-care (01) ==
LOC: EDUNIT# → EDBD → ED 09:49
DX: B35.3 Tinea pedis (principal); F25.0 Schizoaffective disorder, bipolar type; Z76.5 Malingerer [conscious simulation]; Z59.0 Homelessness; F17.200 Nicotine dependence, unspecified, uncomplicated
CPT/HCPCS: 99283